=== PATIENT | female | born 1960 | race Caucasian/White ===

== ENCOUNTER → 2017-12-10 | Outpatient (CLI) | payer OTHER, BC ==
--- NOTE | 2017-12-10 12:56 | DIAGNOSTIC IMAGING REPORT ---
CHEST 2 VIEWS ROUTINE CLINICAL HISTORY: Preoperative chest COMPARISON STUDY: No previous studies for comparison. FINDINGS: The cardiac and mediastinal contours are normal. There is no evidence of focal pulmonary consolidation. There is no evidence of failure. No pleural effusions are visualized.[ IMPRESSION: No active disease in the chest. Electronically signed by: Evens Mejia M.D. 12/10/2017 12:54 PM Dictated Date/Time: 12/10/2017 12:54 PM
[2017-12-10 13:26] LABS: BASO % 0.5 %; BASO ABS # 0.03 K/uL (0-0.2); EOS % 2.1 %; EOS ABS # 0.13 K/uL (0-0.5); HEMATOCRIT 39.6 % (37-47); HEMOGLOBIN 12.6 g/dL (12.0-16.0); IG# 0.01 K/uL (0.00-0.02); LYMPH % 26.2 %; LYMPH ABS # 1.59 K/uL (1.2-3.4); MEAN CELL VOLUME 79.4 fL (80-100); MEAN CORPUSCULAR HEMOGLOBIN 25.3 pg (25-34); MEAN CORPUSCULAR HGB CONC 31.8 g/dl (32-36); MEAN PLATELET VOLUME 9.6 fL (7.4-10.4); MONO % 7.2 %; MONO ABS # 0.44 K/uL (0.11-0.59); NEUT % 63.8 %; NEUT ABS # 3.87 K/uL (1.4-6.5); PLATELET COUNT 220 K/uL (130-400); RED CELL DISTRIBUTION WIDTH SD 40.1 fL (36.4-46.3); WHITE BLOOD COUNT 6.07 K/uL (4.8-10.8)
== END | disposition home or self-care (01) ==
LOC: C.RAD 12:02
PROVIDERS: ATTEND Orthopaedic Surgery
DX: Z01.818 Encounter for other preprocedural examination (principal)

== ENCOUNTER → 2017-12-13 | Outpatient (CLI) | payer OTHER ==
[~2017-12-13] MED LIST: HYDR-5688 PO; LEVO25TA5 PO; MONT1TAB3 PO; VNTHFA/IN INH
== END | disposition home or self-care (01) ==
LOC: C.LABSPEC 15:18
PROVIDERS: ATTEND Orthopaedic Surgery
DX: Z01.818 Encounter for other preprocedural examination (principal)

== ENCOUNTER → 2017-12-26 | Outpatient (CLI) | payer OTHER, BC | END | disposition home or self-care (01) | LOC: C.CPL 10:55 | PROVIDERS: ATTEND Anesthesiology | DX: Z01.810 Encounter for preprocedural cardiovascular examination (principal) ==

== ENCOUNTER → 2018-01-04 | Day surgery (SDC) | payer OTHER, BC ==
--- NOTE | 2017-12-10 14:54 | HISTORY & PHYSICAL EXAMINATION ---
DATE OF SURGERY: 01/04/18 SUBJECTIVE/CHIEF COMPLAINT: Right shoulder pain. HISTORY OF PRESENT ILLNESS: The patient is a 57-year-old female who presented to the office 6 months status post right shoulder rotator cuff repair, subacromial decompression, distal clavicle excision. She started noticing some right shoulder pain and inability to lift her shoulder and perform her activities of daily living. She has tried a subacromial injection as well as physical therapy with minimal relief. She had an MRI that was questionable for a true retear of her rotator cuff versus a 10-hole through one of the sutures. She would like to proceed with a right shoulder revision rotator cuff repair. PAST MEDICAL HISTORY: Significant for asthma and hypothyroidism. PAST SURGICAL HISTORY: Two C-sections, bilateral knee surgery, right carpal tunnel release, and right shoulder rotator cuff repair. SOCIAL HISTORY: She denies alcohol use, denies smoking or tobacco use. She denies IV or illegal drug use. She lives in a 2-story house. 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 FAMILY HISTORY: Noncontributory. ALLERGIES: SULFUR OF WHICH SHE DEVELOPS A RASH AND STEROIDS OF WHICH SHE DEVELOPS THROAT SWELLING. MEDICATIONS: She takes Singulair, levothyroxine, hydrocodone, and albuterol. REVIEW OF SYSTEMS: She denies headaches, fevers, chills, double vision, blurry vision, sore throat, cough, chest pain, nausea, vomiting, diarrhea, constipation, numbness, tingling, tired, urinary difficulties, thoughts to harm herself or harm others or depression. She is positive for joint pain and joint stiffness of the right shoulder. OBJECTIVE: GENERAL APPEARANCE: The patient is a 57-year-old female who is sitting in no acute distress. She is well dressed, well nourished. She is awake, alert, and oriented x3. VITAL SIGNS: She is 5 feet 2 inches tall, 165 pounds, blood pressure is 130/78. HEENT: Normocephalic, atraumatic. Extraocular movements are intact. Mucosa was moist. No septal deviation. NECK: Supple, no lymphadenopathy, no JVD, no thyromegaly. HEART: Regular rate and rhythm with no murmurs or gallops. LUNGS: Clear to auscultation. No wheezing or rhonchi. ABDOMEN: Soft, nontender, nondistended. Normal bowel sounds, no hepatosplenomegaly. EXTREMITIES: Paying particular attention to the right upper extremity, she is able to actively flex to 90 degrees, abduct to 90 degrees and externally rotate to 30 degrees. She has decreased strength in all planes of motion. NEUROLOGIC: Cranial nerves II-XII were intact. Pulses were compared bilaterally and were equal. IMPRESSION: Right shoulder rotator cuff tear. PLAN: The patient is scheduled for a right revision rotator cuff repair. She has failed injections and physical therapy and she would like to proceed to schedule surgery. Risks and benefits, and alternatives to surgery were discussed including but not limited to infection, DVT, pain, stiffness, need for revision surgeries, failure to relieve her symptoms, retear, damage to blood vessels, damage to nerves, and risks of anesthesia and were all discussed with the patient. The patient understands these risks and wishes to proceed. All questions were answered to her satisfaction.
[~2018-01-04] VITALS: Ht 157.5 cm; Wt 75.0 kg
[~2018-01-04] MED LIST changes: +ACETAMINOPHEN 325 MG TAB PO PRN; +ALBUTEROL HFA INHALER 8.5 GM INH ONE; +ATROPINE SULFATE 0.1 MG/ML 5ML SYR IV PRN; +BUPIVACAINE 0.5 % 5 MG/1 ML MPF 30ML VIAL ONE; +CEFAZOLIN SOD 2000MG/15 ML IV PUSH ONE; +DEXAMETHASONE SOD INJ 4 MG/ML VIAL ONE; +EpHEDrine SULFATE INJ 50 MG/ML AMP IV PRN; +EpINEphrine HCL INJ 1 MG/ML 1ML SYRINGE ONE; +FENTANYL CITRATE INJ 50 MCG/1 ML 2 ML VIAL IV PRN; +FENTANYL CITRATE INJ 50 MCG/1 ML 2 ML VIAL ONE; +GLYCOPYRROLATE INJ 0.2 MG/ML VIAL ONE; +HYDROmorphone INJ 0.5 MG/0.5 ML SYR IV PRN; +KETOROLAC TROMETHAMINE 30 MG/ML VIAL IV. ONE; +KETOROLAC TROMETHAMINE 30 MG/ML VIAL ONE; +LABETALOL HCL IV 5 MG/ML 20ML IV PRN; +LACTATED RINGER'S 1000ML 1,000 ML IV SCH; +LIDOCAINE HCL 2% 2 ML VIAL (20MG/ML) ONE; +LIDOCAINE/EPINEPHRINE 1% 20 ML VIAL ONE; +MEPERIDINE HCL 25 MG/ML CARP IV PRN; +MIDAZOLAM HCL 1 MG/ML 2ML VIAL ONE; +MoRPHine SULFATE 2 MG/ML CARP IV PRN; +NEOSTIGMINE METHYLSULFATE 5 MG/5 ML SYR ONE; +NURSING VERBAL MED ORDER ONE; +ONDANSETRON INJ 2 MG/ML 2 ML VIAL IV PRN; +ONDANSETRON INJ 2 MG/ML 2 ML VIAL ONE; +OXYC-57 PO; +OXYCODONE HCL IR 5 MG TAB (IMMEDIATE RELEASE) PO PRN; +PROPOFOL IV EMULSION 10 MG/ML 20 ML VIAL ONE; +ROCURONIUM BROMIDE 10 MG/ML 5 ML VIAL ONE; +ROPIVACAINE 0.5% 5 MG/ML 30 ML VIAL ONE
--- NOTE | 2018-01-04 11:07 | History & Physical Bridge Note ---
H&P Re-Evaluation Bridge Note: I have examined the patient, reviewed the History & Physical and in the interval since the performance of the History & Physical I have noted the following changes of clinical significance: No changes noted
[2018-01-04 11:17] VITALS: BP 119/66; PULSE 62; TEMP 36.5; O2SAT 98; Ht 157.5 cm; Wt 75.0 kg
[2018-01-04 11:38] LABS: CALCIUM 8.3 mg/dl (8.5-10.1); CREATININE 0.71 mg/dl (0.60-1.20); POTASSIUM 3.9 mmol/L (3.5-5.1)
--- NOTE | 2018-01-04 14:00 | [facility] Operative Report ---
Operative Report Operative Date January 04, 2018. Pre-Operative Diagnosis Right Shoulder Rotator Cuff re-tear Post-Operative Diagnosis Same plus adhesions Procedure(s) Performed Right Shoulder: Arthroscopic Revision Rotator Cuff Repair with Lysis of Adhesions Surgeon Dr. Brown Mannequin Refinisher Surgeon(s) GERARDO Lin Estimated Blood Loss 1ML Findings As above Specimens none per surgeon Drains None Anesthesia Type General Regional Complication(s) none Disposition Recovery Room / PACU Indications The patient is a 57-year-old female. The undergone arthroscopic rotator cuff repair. She continued to have pain in the shoulder. Repeat imaging concerning but not completely definitive for rotator cuff re-tear. She had continued pain despite cortisone injection and continued physical therapy revision arthroscopy and likely revision rotator cuff repair Description of Procedure The MRI demonstrated a full-thickness rotator cuff tear. We discussed various treatment measures. The patient wished to proceed with arthroscopic repair. Risks, benefits and alternatives to surgery including, but not limited to, infection DVT, pain, stiffness, need for revision surgery, failure to relieve all symptoms, damage to blood vessels, damage to nerves, risk of anesthesia were discussed with the patient and they wished to proceed. The patient was identified. Laterality was confirmed and marked. The patient received a preoperative antibiotic as well as an interscalene block. They were transferred to the operating room and placed in the supine position and induced into general endotracheal anesthesia per the anesthesia staff. The patient was then safely transferred to the lateral decubitus position, secured by a beanbag. An axillary roll was placed. All pressure points were well-padded. The limb was placed in 10 pounds of lateral traction and then prepped and draped in the usual standard manner with ChloraPrep. The portal sites were anesthetized with 2% lidocaine with epinephrine. I made a standard posterior viewing portal made through a stab incision and then bluntly entered the glenohumeral joint. Then under spinal needle localization, I establish an anterior superolateral portal. The patient had evidence of their previous rotator cuff repair. The vast majority of the medial portion of the rotator cuff insertion was torn back off of bone. Number the sutures were performed and visible through the articular side. There is small portion that was healed on the lateral aspect of the footprint but the majority of the footprint was bare. The suture anchors themselves appeared to be intact. The cartilage of the humeral head and glenoid . The long head of the biceps absent. The subscapularis was normal. I then removed the instrumentation from the joint and entered the subacromial space and established a lateral portal. There was a full-thickness rotator cuff re-tear again there is a small amount of tissue on the lateral aspect of foot pronation that measured about 2 cm in diameter. Intact but is otherwise re -torn. The previous suture material was debrided out with a shaver as well as grasper. I debrided the footprint with a shaver to establish a good bleeding response. Through a stab incision I placed a 5.5 mm HEALICOIL suture anchor. I passed the ultra braid sutures in a horizontal mattress with a fast passive scorpion. I then passed the ultra tape with a shuttling suture. I repeated this process for a posterior medial anchor. I tied the ULTRABRAID sutures with sliding Monon knots reinforced for 3 half hitches on alternating posts. I then took 1 ULTRABRAID suture from each anchor I placed them in a 5.5 mm Multifix S suture anchor. I placed one anterolaterally. I then repeated this process another suture anchor posterolaterally, completing my double row construct. Portal sites were closed with nylon. A sterile dressing was applied and a sling placed. All needle and sponge counts were correct at the end of the procedure. The patient was transferred to the PACU in stable condition without apparent complication. The PA-C was necessary for assistance with procedure for assistance in positioning, prepping, draping, retraction and closure. I attest to the content of the Intraoperative Record and any orders documented therein. Any exceptions are noted below.
--- NOTE | 2018-01-04 14:27 | Discharge Instructions ---
Discharge Instructions Date of Service January 04, 2018. Visit Reason for Visit: Right Shoulder Rotator Cuff Tear Discharge Discharge Diagnosis / Problem: Right Shoulder Rotator Cuff Tear Discharge Goals Goal(s): Decrease discomfort, Improve function Activity Recommendations Activity Limitations: per Instructions/Follow-up section Anesthesia . Post Anesthesia Instructions: If you have had General Anesthesia or IV Sedation: * Do not drive today. * Resume driving when surgeon permits. * Do not make important decisions or sign legal documents today. * Call surgeon for: 1. Temperature elevations greater than 101 degrees F. 2. Uncontrollable pain. 3. Excessive bleeding. 4. Persistent nausea and vomiting. 5. Medication intolerance (nausea, vomiting or rash). * For nausea and vomiting use only clear liquids such as: tea, soda, bouillon until nausea subsides, then gradually increase diet as tolerated. * If you have any concerns or questions, call your surgeon's office. If physician is unavailable and it is an emergency, call 911 or go to the nearest emergency room. . Instructions / Follow-Up Instructions / Follow-Up U DISCHARGE INSTRUCTIONS: ROTATOR CUFF REPAIR SELF CARE INSTRUCTIONS A. You are permitted to loosen your sling/immobilizer to move your elbow, wrist , and hand to prevent stiffness. You should use your well arm (good arm) to assist the operated extremity when trying to raise the arm away from the body, hygiene purposes. Do NOT actively try to use/engage your shoulder muscles in operative arm at this time. You should NOT do overhead activity, lifting, or attempt to reach behind your back. B. You will not start Physical Therapy for 6 weeks. You will be provided a prescription for therapy with specific restrictions, if needed, at time of discharge. C. At 48 hours post-operatively, you may change your dressing. (Leave white steri-strips intact if present). Use band-aids and change daily. You are allowed to shower at this time and get the incision area wet, but DO NOT soak or submerge incision area in water. (No baths, swimming pools, hot tubs) D. Do NOT apply soap or any ointment/lotions directly over incision. E. You may use ice as needed to operative shoulder SPECIAL CARE INSTRUCTIONS: VERY IMPORTANT TO READ AND REVIEW A. There are a few signs you need to watch for after you are home. Call [facility] [place] at [phone] if you experience any of the following: a. Increased severe shoulder pain. Some pain is expected especially when you exercise b. Increased swelling in your shoulder or arm; pain or swelling in either upper extremity. (Note: swelling and stiffness is normal and expected for several weeks post op, depending on type of shoulder surgery you had). c. Any fluid or drainage from the incision; redness of the incision. d. Shortness of breath or chest pain. B. Please call [facility] at [phone] if you have any questions or concerns about your operation or recovery. C. Call your physician if: a. Temperature is greater than 101 degrees (F). b. Pain is not relieved by prescribed pain medications. c. Increase drainage or redness from incision. d. Unanswered questions or concerns. D. Pain Medication: a. You will be prescribed pain medication upon discharge that should last till your first post-operative appointment. b. If you experience nausea and/or skin rash, discontinue this medication and contact our office for an alternative medication. c. Caution- narcotic pain medication can cause constipation. FOLLOW UP VISIT: Please call [facility] at [phone] to schedule a follow up appointment with Dr Brown in 10-14 days from your surgery date. Diet Recommendations Recommended Home Diet: resume previous diet Procedures Procedures Performed: Right Shoulder: Arthroscopic Revision Rotator Cuff Repair with Lysis of Adhesions Pending Studies Studies pending at discharge: no Medical Emergencies . Who to Call and When: Medical Emergencies: If at any time you feel your situation is an emergency, please call 911 immediately. . Non-Emergent Contact Non-Emergency issues call your: Surgeon Call Non-Emergent contact if: temperature is above 101.5, your pain is not controlled, your pain is worsening, wound has increased drainage, wound has increased redness . . "Provider Documentation" section prepared by Ravindra Harvey. . [place] Drug Monitoring Program Search Results: patient reviewed within database, see additional documentation Drug Monitoring Findings: Pt receiving Hydrocodone rx monthly from Dr Angélica Shabazz MD in [place], [place]. Last rx filled 12/13/17. Pt will need to return to Dr Shabazz for continued pain meds after initial post operative period is over.
--- NOTE | 2018-01-04 14:54 | Anesthesiology Progress Note ---
Anesthesia Post Op Note Date & Time January 04, 2018 at 14:54 Vital Signs Pain Intensity: 0 Vital Signs Past 12 Hours Date Time Temp Pulse Resp B/P (MAP) Pulse Ox O2 Delivery O2 Flow Rate FiO2 01/04/18 14:42 36.8 49 01/04/18 14:41 109/57 01/04/18 14:40 45 21 01/04/18 14:40 45 21 93 01/04/18 14:36 115/61 01/04/18 14:35 48 16 01/04/18 14:35 48 16 98 01/04/18 14:30 45 15 01/04/18 14:30 45 15 121/65 98 01/04/18 14:26 115/64 01/04/18 14:25 44 17 97 01/04/18 14:25 43 17 01/04/18 14:21 124/65 01/04/18 14:20 46 17 01/04/18 14:20 46 17 01/04/18 14:10 36.5 56 16 132/66 97 Oxymask 8 01/04/18 11:17 36.5 62 18 119/66 (83) 98 Room Air Notes Mental Status: alert / awake / arousable, participated in evaluation Pt Amnestic to Procedure: Yes Nausea / Vomiting: adequately controlled Pain: adequately controlled Airway Patency, RR, SpO2: stable & adequate BP & HR: stable & adequate Hydration State: stable & adequate Anesthetic Complications: no major complications apparent
[2018-01-04 15:00] VITALS: BP 102/52; PULSE 43; TEMP 36.4; O2SAT 91
[2018-01-04 15:10] VITALS: BP 110/62; PULSE 45; TEMP 36.5; O2SAT 95
[2018-01-04 15:30] VITALS: BP 109/52; PULSE 47; TEMP 36.7; O2SAT 97
[2018-01-04 16:00] VITALS: BP 107/59; PULSE 50; TEMP 36.7; O2SAT 97
== END | disposition home or self-care (01) ==
LOC: C.ACU 10:42
PROVIDERS: ATTEND Orthopaedic Surgery
DX: M75.101 Unspecified rotator cuff tear or rupture of right shoulder, not specified as traumatic (principal); J45.909 Unspecified asthma, uncomplicated; E03.9 Hypothyroidism, unspecified; M19.90 Unspecified osteoarthritis, unspecified site; E66.9 Obesity, unspecified; Z88.2 Allergy status to sulfonamides; Z88.8 Allergy status to other drugs, medicaments and biological substances

== ENCOUNTER 2018-09-20 06:29 | Inpatient (IN) ==
--- NOTE | 2018-09-05 12:06 | Anesthesiology Consultation ---
Date of Service September 05, 2018 Assessment & Plan (1) Encounter for pre-operative examination: Chart Review Chart Review: Acceptable Risk for Surgery and Patient seen in Pre Admission Testing Teaching & Discussion Instructed NPO after midnight before surgery, except medications with 15 cc of water. Medication instructions provided according to the PAT guidelines. History Surgery Operation Date: 09/20/18 09:20 Proposed Procedures p Right Reverse Total Shoulder Arthroplasty - Christiano Brown MD Height/Weight Height: 5 ft 2 in Weight: 77.4 kg Allergies Allergy/AdvReac Type Severity Reaction Status Date / Time Sulfa (Sulfonamide Allergy Unknown TURNS RED Verified 08/30/18 09:09 Antibiotics) ALL OVER STEROIDS Allergy Severe ASTHMA Uncoded 08/30/18 09:09 ATTACK, RAW THROAT, THROAT SWELLING Medications Home Medications Medication Instructions Recorded Confirmed Last Taken albuterol sulfate 2 inh INHALATION Q6H PRN 08/30/18 08/30/18 Unknown hydrocodone-acetaminophen 1 tab PO Q6H PRN 08/30/18 08/30/18 Unknown levothyroxine 25 mcg PO QAM 08/30/18 08/30/18 Unknown montelukast [Singulair] 10 mg PO QAM 08/30/18 08/30/18 Unknown naproxen sodium 550 mg PO BID PRN 08/30/18 08/30/18 Unknown oxymetazoline [Nasal [place] Sinus] 2 spray INTRANASAL Q12H PRN 08/30/18 08/30/18 Unknown Past Medical History Medical History Asthma USES PRN INH 2XWK. Hypothyroidism Osteoarthritis Past Family History Family History Grandmother (Maternal) Family hx of colon cancer Past Surgical History Surgical History History of arthroscopy BL KNEE History of bilateral tubal ligation History of carpal tunnel release RT History of section History of colonoscopy History of shoulder surgery History of tooth extraction Past Anesthesia History No Hx of Anesthesia Complications and No Family Hx of Anesthesia Complications MAC 4, ETT 7.0 for 12/2017 RCR surgery at [facility], no issues per record. History of PONV No Motion Sickness Screening History of Motion Sickness: No Social History Smoking Status: Former smoker Do You Dip or Chew Tobacco: No Smoking End Date: QUIT AT AGE 22 Hx Alcohol Use: Yes Alcohol type: beer and wine alcohol intake frequency: holidays/special occasions only Hx Substance Use: No substance use type: does not use Exercise / Class Metabolic Activity II 4-5 Yardwork/Stairs/Walk up hill (no CP or SOB with stairs) Review of Systems Pt denies any recent chest pain, shortness of breath, palpitations, cough, fever or URI. Physical Exam Vital Signs BP: 108/73 P: 62bpm SPO2: 98% RA T: 97.9 F R: 16 ENMT Mouth: + poor dentition and + chipped teeth (several broken/chipped); no dental restorations and no loose teeth Thyromental Distance: > or= 3.5 Finger Breadths (3.5) Mallampati Class: II Neck normal visual inspection; neck extension not limited Respiratory normal respiratory effort Auscultation: lungs clear to auscultation bilaterally Cardiovascular Rate/Rhythm: regular rate and regular rhythm Heart Sounds: no murmur Vessels: no carotid bruit Testing Electrocardiogram Date: 12/26/17 Findings: + NSR @ (65) Chest X-Ray Date: 12/10/17 Findings: + NAD Laboratory Results 09/05/18 12:25 09/05/18 12:25 Blood Type B Positive 09/05/18 12:25 Antibody Screen NEGATIVE 09/05/18 12:25 PT 10.1 Seconds (9.0-12.0) 09/05/18 12:25 INR 1.0 (0.9-1.1) 09/05/18 12:25 APTT 25.2 Seconds (21.0-31.0) 09/05/18 12:25 Hemoglobin A1c 6.0 % (4.5-5.6) H 09/05/18 12:25 Urine Color Yellow 09/05/18 Unknown Urine Appearance Clear (Clear) 09/05/18 Unknown Urine pH 5.0 (4.5-7.5) 09/05/18 Unknown Ur Specific [place] 1.017 (1.000-1.030) 09/05/18 Unknown Urine Protein Negative (Negative) 09/05/18 Unknown Urine Glucose (UA) Negative (Negative) 09/05/18 Unknown Urine Ketones Negative (Negative) 09/05/18 Unknown Urine Nitrite Negative (Negative) 09/05/18 Unknown Ur Leukocyte Esterase Trace (Negative) H 09/05/18 Unknown Urine WBC (Auto) 1-5 /hpf (0-5) 09/05/18 Unknown Urine RBC (Auto) 0-4 /hpf (0-4) 09/05/18 Unknown U Hyaline Cast (Auto) 0 /lpf (0-5) 09/05/18 Unknown U Epithel Cells (Auto) 10-20 /lpf (0-5) H 09/05/18 Unknown Urine Bacteria (Auto) Negative (Negative) 09/05/18 Unknown
--- NOTE | 2018-09-05 12:16 | PAT Medication Instructions ---
Medication Instructions Date of Service September 05, 2018 Home Medications albuterol sulfate 2 inh INHALATION Q6H PRN hydrocodone-acetaminophen 1 tab PO Q6H PRN levothyroxine 25 mcg PO QAM montelukast [Singulair] 10 mg PO QAM naproxen sodium 550 mg PO BID PRN oxymetazoline [Nasal [place] Sinus] 2 spray INTRANASAL Q12H PRN ASK your surgeon for instructions naproxen sodium 550 mg PO BID PRN DO NOT take the morning of surgery montelukast [Singulair] 10 mg PO QAM Take morning of surgery With a small sip of water, OTHERWISE NOTHING TO EAT OR DRINK AFTER MIDNIGHT: albuterol sulfate 2 inh INHALATION Q6H PRN (if needed, and bring with you to the hospital) hydrocodone-acetaminophen 1 tab PO Q6H PRN (if needed, may be taken up to four hours before surgery) levothyroxine 25 mcg PO QAM oxymetazoline [Nasal [place] Sinus] 2 spray INTRANASAL Q12H PRN (if needed) Take evening before surgery albuterol sulfate 2 inh INHALATION Q6H PRN (if needed) hydrocodone-acetaminophen 1 tab PO Q6H PRN (if needed) oxymetazoline [Nasal [place] Sinus] 2 spray INTRANASAL Q12H PRN (if needed) Other Notes If you have any questions please call us at [phone] or [phone] or [phone] or [phone]
[2018-09-05 13:10] LABS: Partial Thromboplastin Time 25.2 Seconds (21.0-31.0); Prothrombin Time 10.1 Seconds (9.0-12.0)
[2018-09-05 13:10] LABS: Appearance Urine Clear (Clear); Bacteria Urine Automated Negative (Negative); Bilirubin Urine Negative (Negative); Cast Urine Automated 0 /lpf (0-5); Color Urine Yellow; Glucose Urine UA Negative (Negative); Ketones Urine Negative (Negative); Leukocyte Esterase Urine Trace (Negative); Nitrite Urine Negative (Negative); Protein Urine Negative (Negative); Specific Gravity Urine 1.017 (1.000-1.030); Urobilinogen Urine Negative (Negative)
[2018-09-05 13:14] LABS: Basophils # (auto) 0.02 K/uL (0-0.2); Basophils % (auto) 0.3 %; Eosinophils # (auto) 0.21 K/uL (0-0.5); Eosinophils % (auto) 3.4 %; Hematocrit (blood only) 40.9 % (37-47); Hemoglobin 12.9 g/dL (12.0-16.0); Immature Granulocytes # (auto) 0.02 K/uL (0.00-0.02); Immature Granulocytes % (auto) 0.3 %; Lymphocytes # (auto) 1.87 K/uL (1.2-3.4); Lymphocytes % (auto) 30.6 %; Mean Corpuscular Hgb Conc 31.5 g/dL (32-36); Mean Platelet Volume 10.1 fL (7.4-10.4); Monocytes # (auto) 0.41 K/uL (0.11-0.59); Monocytes % (auto) 6.7 %; Neutrophils # (auto) 3.59 K/uL (1.4-6.5); Neutrophils % (auto) 58.7 %; Platelet Count 210 K/uL (130-400); RDW Coefficient of Variation 14.1 % (11.5-14.5); RDW Standard Deviation 41.2 fL (36.4-46.3); Red Blood Count 5.05 M/uL (4.2-5.4); White Blood Count 6.12 K/uL (4.8-10.8)
[2018-09-05 13:41] LABS: Albumin Level 3.6 gm/dl (3.4-5.0); BUN Creatinine Ratio 17.8 (10-20); Calcium 8.7 mg/dl (8.5-10.1); Creatinine Clr Calc Pharmacy 83.2 ml/min; Est GFR (African American) 108.8; Est GFR (Non-African American) 93.9
[2018-09-05 13:49] LABS: Estimated Average Glucose 126 mg/dl
--- NOTE | 2018-09-11 11:40 | History & Physical Report ---
Date of Service September 11, 2018 Assessment & Plan (1) Complete tear of right rotator cuff: Patient has a large irreparable rotator cuff re-tear. Treatment options were discussed with the patient including surgical intervention of reverse total shoulder arthroplasty. Risks, benefits and alternatives to surgery including but not limited to infection, DVT, pain, stiffness, need for revision surgery, damage to blood vessels, damage to nerves, PE, , were discussed with the patient and they wish to proceed. Plan will be for right reverse total shoulder arthroplasty. All questions were answered. Surgery is scheduled for . Patient plans on discharge home with either home health PT or outpatient PT. She will follow up in the office post operatively. History of Present Illness Chief Complaint: Right Shoulder pain Primary Care Provider: Andrea Shabazz Patient is a 58 year old female with complaints of ongoing right shoulder pain and dysfunction. She has undergone previous shoulder arthroscopy with rotator cuff repair x 2, which have failed. She has a large irreparable rotator cuff tear. She has failed conservative measures including physical therapy, cortisone injecitons, and antiinflammatory medications. She would like to proceed with reverse total shoulder arthroplasty. Patient denies headaches, sweats, fevers, chills, double vision, blurred vision, cough, sore throat, dysphagia, chest pain, sob, wheezing, n/v/d/c, numbness, tingling, fatigue, urinary symptoms, mood disorders. ROS positive for right shulder pain and stiffness. Allergies Allergy/AdvReac Type Severity Reaction Status Date / Time Sulfa (Sulfonamide Allergy Unknown TURNS RED Verified 08/30/18 09:09 Antibiotics) ALL OVER STEROIDS Allergy Severe ASTHMA Uncoded 08/30/18 09:09 ATTACK, RAW THROAT, THROAT SWELLING Home Medications Home Medications Medication Instructions Recorded Confirmed Type albuterol sulfate 2 inh INHALATION Q6H PRN 08/30/18 08/30/18 History hydrocodone-acetaminophen 1 tab PO Q6H PRN 08/30/18 08/30/18 History levothyroxine 25 mcg PO QAM 08/30/18 08/30/18 History montelukast [Singulair] 10 mg PO QAM 08/30/18 08/30/18 History naproxen sodium 550 mg PO BID PRN 08/30/18 08/30/18 History oxymetazoline [Nasal Screven Sinus] 2 spray INTRANASAL Q12H PRN 08/30/18 08/30/18 History Past Med/Surg History Medical History Asthma USES PRN INH 2XWK. Hypothyroidism Osteoarthritis Surgical History History of arthroscopy BL KNEE History of bilateral tubal ligation History of carpal tunnel release RT History of section History of colonoscopy History of shoulder surgery History of tooth extraction Family History Grandmother (Maternal) Family hx of colon cancer Social History Current Living Situation Comment: LIVES WITH MARY ANN Other Information That Helps Us Care for You: No Feels Safe at Home: Yes Safety Concerns: Feels Safe At This Time Smoking Status: Former smoker Do You Dip or Chew Tobacco: No Smoking End Date: QUIT AT AGE 22 Hx Alcohol Use: Yes Alcohol type: beer and wine Alcohol Intake Frequency: holidays/special occasions only Hx Substance Use: No Beliefs That Will Affect Care: None Preferred Language: Faroese Communication Ability: Effective 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 Pain and weakness with supraspinatus and infraspinatus testing. Skin: no rashes, warm and dry Neurologic: normal touch/pain/proprioception Psychiatric: A+Ox3, euthymic affect Results & Data Laboratory Results Lab Results 09/05/18 09/05/18 09/05/18 Range/Units 12:25 12:25 12:25 WBC 6.12 (4.8-10.8) K/uL RBC 5.05 (4.2-5.4) M/uL Hgb 12.9 (12.0-16.0) g/dL Hct 40.9 (37-47) % MCV 81.0 (80-100) fL MCH 25.5 (25-34) pg MCHC 31.5 L (32-36) g/dL RDW Std Deviation 41.2 (36.4-46.3) fL RDW Coeff of Karoline 14.1 (11.5-14.5) % Plt Count 210 (130-400) K/uL MPV 10.1 (7.4-10.4) fL Immature Gran % (Auto) 0.3 % Neut % (Auto) 58.7 % Lymph % (Auto) 30.6 % [place] % (Auto) 6.7 % Eos % (Auto) 3.4 % Baso % (Auto) 0.3 % Immature Gran # (Auto) 0.02 (0.00-0.02) K/uL Neut # (Auto) 3.59 (1.4-6.5) K/uL Lymph # (Auto) 1.87 (1.2-3.4) K/uL [place] # (Auto) 0.41 (0.11-0.59) K/uL Eos # (Auto) 0.21 (0-0.5) K/uL Baso # (Auto) 0.02 (0-0.2) K/uL PT 10.1 (9.0-12.0) Seconds INR 1.0 (0.9-1.1) APTT 25.2 (21.0-31.0) Seconds PTT Ratio 1.0 Sodium 137 (136-145) mmol/L Potassium 4.0 (3.5-5.1) mmol/L Chloride 105 (98-107) mmol/L Carbon Dioxide 26 (21-32) mmol/L Anion Gap 6.0 (3-11) BUN 13 (7-18) mg/dl Creatinine 0.71 (0.6-1.2) mg/dl Est Cr Clr Drug Dosing 83.2 ml/min Est GFR ( Amer) 108.8 Est GFR (Non-Af Amer) 93.9 BUN/Creatinine Ratio 17.8 (10-20) Glucose 89 (70-99) mg/dl Estimat Average Glucose mg/dl Hemoglobin A1c (4.5-5.6) % Calcium 8.7 (8.5-10.1) mg/dl Albumin 3.6 (3.4-5.0) gm/dl Urine Color Urine Appearance (Clear) Urine pH (4.5-7.5) Ur Specific [place] (1.000-1.030) Urine Protein (Negative) Urine Glucose (UA) (Negative) Urine Ketones (Negative) Urine Blood (Negative) Urine Nitrite (Negative) Urine Bilirubin (Negative) Urine Urobilinogen (Negative) Ur Leukocyte Esterase (Negative) Urine WBC (Auto) (0-5) /hpf Urine RBC (Auto) (0-4) /hpf U Hyaline Cast (Auto) (0-5) /lpf U Epithel Cells (Auto) (0-5) /lpf Urine Bacteria (Auto) (Negative) Blood Type Antibody Screen 09/05/18 09/05/18 09/05/18 Range/Units 12:25 12:25 Unknown WBC (4.8-10.8) K/uL RBC (4.2-5.4) M/uL Hgb (12.0-16.0) g/dL Hct (37-47) % MCV (80-100) fL MCH (25-34) pg MCHC (32-36) g/dL RDW Std Deviation (36.4-46.3) fL RDW Coeff of Karoline (11.5-14.5) % Plt Count (130-400) K/uL MPV (7.4-10.4) fL Immature Gran % (Auto) % Neut % (Auto) % Lymph % (Auto) % [place] % (Auto) % Eos % (Auto) % Baso % (Auto) % Immature Gran # (Auto) (0.00-0.02) K/uL Neut # (Auto) (1.4-6.5) K/uL Lymph # (Auto) (1.2-3.4) K/uL [place] # (Auto) (0.11-0.59) K/uL Eos # (Auto) (0-0.5) K/uL Baso # (Auto) (0-0.2) K/uL PT (9.0-12.0) Seconds INR (0.9-1.1) APTT (21.0-31.0) Seconds PTT Ratio Sodium (136-145) mmol/L Potassium (3.5-5.1) mmol/L Chloride (98-107) mmol/L Carbon Dioxide (21-32) mmol/L Anion Gap (3-11) BUN (7-18) mg/dl Creatinine (0.6-1.2) mg/dl Est Cr Clr Drug Dosing ml/min Est GFR ( Amer) Est GFR (Non-Af Amer) BUN/Creatinine Ratio (10-20) Glucose (70-99) mg/dl Estimat Average Glucose 126 mg/dl Hemoglobin A1c 6.0 H (4.5-5.6) % Calcium (8.5-10.1) mg/dl Albumin (3.4-5.0) gm/dl Urine Color Yellow Urine Appearance Clear (Clear) Urine pH 5.0 (4.5-7.5) Ur Specific [place] 1.017 (1.000-1.030) Urine Protein Negative (Negative) Urine Glucose (UA) Negative (Negative) Urine Ketones Negative (Negative) Urine Blood Negative (Negative) Urine Nitrite Negative (Negative) Urine Bilirubin Negative (Negative) Urine Urobilinogen Negative (Negative) Ur Leukocyte Esterase Trace H (Negative) Urine WBC (Auto) 1-5 (0-5) /hpf Urine RBC (Auto) 0-4 (0-4) /hpf U Hyaline Cast (Auto) 0 (0-5) /lpf U Epithel Cells (Auto) 10-20 H (0-5) /lpf Urine Bacteria (Auto) Negative (Negative) Blood Type B Positive Antibody Screen NEGATIVE Diagnostic Findings Right shoulder MR arthrogram: Large full thickness re-tear of supraspinatus extending to infraspinatus with retraction to level of the glenoid.
[~2018-09-20 06:29] MED LIST changes: -ACETAMINOPHEN 325 MG TAB PO PRN; +ACETAMINOPHEN 500 MG TAB PO SCH; -ALBUTEROL HFA INHALER 8.5 GM INH ONE; -ATROPINE SULFATE 0.1 MG/ML 5ML SYR IV PRN; -BUPIVACAINE 0.5 % 5 MG/1 ML MPF 30ML VIAL ONE; +CEFAZOLIN 1000MG 1,000 MG/7.5 ML SYR IV SCH; -CEFAZOLIN SOD 2000MG/15 ML IV PUSH ONE; -DEXAMETHASONE SOD INJ 4 MG/ML VIAL ONE; -EpHEDrine SULFATE INJ 50 MG/ML AMP IV PRN; -EpINEphrine HCL INJ 1 MG/ML 1ML SYRINGE ONE; +FAMOTIDINE 20 MG TAB PO SCH; -FENTANYL CITRATE INJ 50 MCG/1 ML 2 ML VIAL IV PRN; -FENTANYL CITRATE INJ 50 MCG/1 ML 2 ML VIAL ONE; +GABAPENTIN 300 MG x 2 PO SCH; -GLYCOPYRROLATE INJ 0.2 MG/ML VIAL ONE; -HYDR-5688 PO; -HYDROmorphone INJ 0.5 MG/0.5 ML SYR IV PRN; -KETOROLAC TROMETHAMINE 30 MG/ML VIAL IV. ONE; -KETOROLAC TROMETHAMINE 30 MG/ML VIAL ONE; -LABETALOL HCL IV 5 MG/ML 20ML IV PRN; -LACTATED RINGER'S 1000ML 1,000 ML IV SCH; -LEVO25TA5 PO; -LIDOCAINE HCL 2% 2 ML VIAL (20MG/ML) ONE; -LIDOCAINE/EPINEPHRINE 1% 20 ML VIAL ONE; +LR 15ML/HR IV SCH; -MEPERIDINE HCL 25 MG/ML CARP IV PRN; +METOCLOPRAMIDE HCL 10 MG TABLET PO SCH; -MIDAZOLAM HCL 1 MG/ML 2ML VIAL ONE; -MONT1TAB3 PO; -MoRPHine SULFATE 2 MG/ML CARP IV PRN; -NEOSTIGMINE METHYLSULFATE 5 MG/5 ML SYR ONE; -NURSING VERBAL MED ORDER ONE; -ONDANSETRON INJ 2 MG/ML 2 ML VIAL IV PRN; -ONDANSETRON INJ 2 MG/ML 2 ML VIAL ONE; -OXYC-57 PO; -OXYCODONE HCL IR 5 MG TAB (IMMEDIATE RELEASE) PO PRN; -PROPOFOL IV EMULSION 10 MG/ML 20 ML VIAL ONE; -ROCURONIUM BROMIDE 10 MG/ML 5 ML VIAL ONE; -ROPIVACAINE 0.5% 5 MG/ML 30 ML VIAL ONE; +ROPIVACAINE 0.5% HCL/PF 150 MG, BUPIVACAINE 0.5% MPF 30 ML, EPINEPHrine 30MG/30ML (OR U... INFIL SCH; -VNTHFA/IN INH; +dexAMETHasone 4 MG TAB PO SCH
--- NOTE | 2018-09-20 06:50 | History & Physical Bridge Note ---
Date of Service September 20, 2018 History & Physical Bridge Note I have examined the patient, reviewed the History & Physical and in the interval since the performance of the History & Physical I have noted the following changes of clinical significance: no changes noted
[2018-09-20] MEDS ORDERED: ROPIVACAINE 0.5% 5 MG/ML 30 ML VIAL ONE (07:05)
[2018-09-20] MEDS ORDERED: MIDAZOLAM HCL 1 MG/ML 2ML VIAL ONE (07:23)
[2018-09-20] MEDS ORDERED: fentaNYL citrate 100 MCG/2 ML VIAL ONE (07:23)
[2018-09-20] MEDS ORDERED: ePHEDrine sulfate 50 MG/ML AMP IV PRN (08:21)
[2018-09-20] MEDS ORDERED: ATROPINE SULFATE 0.1 MG/ML 10ML SYR IV PRN (08:21)
[2018-09-20] MEDS ORDERED: fentaNYL citrate 100 MCG/2 ML VIAL IV PRN (08:21)
[2018-09-20] MEDS ORDERED: ONDANSETRON INJ 2 MG/ML 2 ML VIAL IV PRN ×2 (08:21→11:54)
[2018-09-20] MEDS ORDERED: BACITRACIN INJ 50,000 UNIT VIAL ONE (09:16)
[2018-09-20] MEDS ORDERED: THROMBIN FOR SOLN 20000 UNIT KIT ONE (09:16)
[2018-09-20] MEDS ORDERED: VANCOMYCIN HCL 1000MG/20ML VIAL ONE (09:16)
[2018-09-20] MEDS ORDERED: POVIDONE-IODINE OP SOLN 30 ML BTL ONE (09:16)
[2018-09-20] MEDS ORDERED: PROPOFOL IV EMULSION 10 MG/ML 20 ML VIAL IV ONE (10:04)
[2018-09-20] MEDS ORDERED: LIDOCAINE HCL 2% 2 ML VIAL/AMP(20MG/ML) INFIL ONE (10:04)
[2018-09-20] MEDS ORDERED: ROCURONIUM BROMIDE 10 MG/ML 5 ML VIAL ONE (10:04)
[2018-09-20] MEDS ORDERED: ONDANSETRON INJ 2 MG/ML 2 ML VIAL ONE (10:04)
[2018-09-20] MEDS ORDERED: SUCCINYLCHOLINE CHLORIDE 20 MG/ML 10 ML VIAL ONE (10:04)
[2018-09-20] MEDS ORDERED: ePHEDrine sulfate 50 MG/ML SYR ONE (10:27)
--- NOTE | 2018-09-20 11:28 | Operative Report ---
Post Operative Report Pre & Post Diagnosis Operation Date: 09/20/18 09:00 Pre-Op Diagnosis: Right Shoulder rotator cuff arthropathy Post-Op Diagnosis: Right Shoulder rotator cuff arthropathy Procedure Operation Date: 09/20/18 09:00 Actual Procedures p Right Reverse Total Shoulder Arthroplasty(Right) - Christiano Brown MD Surgeon Christiano Brown MD Frame Polisher Augustus Mayfield PA-C Estimated Blood Loss 50 Findings Consistent with Post-Op Diagnosis Specimens Humeral head Drains 1 Hemovac Anesthesia Type General Regional Complications none Disposition Accompanied Patient To Recovery: No Disposition: Recovery Room Indications The patient is a 58-year-old female who sustained a rotator cuff tear. She had undergone arthroscopic repair. The time of her repair she had fairly poor tissue quality particular bone quality. She developed a re-tear of the rotator cuff. We again performed a revision rotator cuff repair she again had re- tearing of the rotator cuff. This states she has a irreparable rotator cuff tear with continued pain and disability. She is failed conservative measures including injection, anti-inflammatories, physical therapy and she wishes to proceed with a reverse total shoulder arthroplasty. Description of Procedure Risks, benefits and alternatives to surgery including, but not limited to, infection DVT, pain, stiffness, need for revision surgery, failure to relieve all symptoms, damage to blood vessels, damage to nerves, risk of anesthesia were discussed with the patient and they wished to proceed. The patient was identified. Laterality was confirmed and marked. The patient received a preoperative antibiotic as well as an interscalene block. They were transferred to the operating room and placed in the supine position and induced into general endotracheal anesthesia per the anesthesia staff. The patient was then safely transferred to a slight beachchair position. The patient was secured in the Tenet positioner. All pressure points were well padded. The shoulder was prepped and draped in the usual sterile manner with ChloraPrep. The arm was secured in the Spider valle. I made a longitudinal incision just lateral to the coracoid, sharply incising through the skin and utilizing Bovie electrocautery to achieve hemostasis. I identified the cephalic vein and mobilized it laterally with the deltoid. I mobilize the pectoralis and mobilize this medially releasing a small portion of the upper border of the pec tendon to improve visualization. I then identified and mobilized the conjoined tendon. I identified the long head of the biceps tendon. The long head of the biceps tendon had had previously been tenodesed. I then released the subscapularis. I pinned into place my humeral head version cutting guide and made my humeral head resection. I then sequentially reamed and sequentially broached. I then placed the trial humeral stem into the shoulder. I placed retractors around the glenoid and then excised the residual biceps tendon stump and glenoid labrum. I elevated the soft tissues and the inferior aspect of the glenoid to improve exposure and released tissues circumferentially. I then positioned and drilled for the central post for the glenoid plate. The glenoid plate was bone grafted with bone taken from the humeral head. I impacted the definitive glenoid plate into position and then placed a total of 4 compression screws that were then locked into position with locking caps. I then placed the glenosphere onto the plate and secured it with a locking screw. I then removed the trial humeral stem and placed the definitive humeral stem. I trialed off of the definitive stem. The definitive components used were [employer] Equinox: Preserve short humeral press-fit stem: 6 Standard glenoid plate Glenosphere: 38 Humeral tray:+ 0 Humeral polyethylene liner: + 0 I thoroughly irrigated the wound. Deep tissues were anesthetized with an orthomix solution. I then locked my definitive humeral tray into position with a torque limiting screw. I then impacted the definitive humeral polyethylene liner into position. I then reduced the shoulder. There was good range of motion and good stability after the reduction. The wound was again thoroughly irrigated and a Betadine soak was performed. A deep drain was placed. The deltopectoral interval was closed with interrupted #1 Ethibond suture. The subcutaneous tissue was closed with interrupted 2-0 Vicryl suture. The skin was closed with minerva. A sterile dressing was applied. A sling was placed. All needle and sponge counts were correct at the end of the procedure. The patient was transferred to the PACU in stable condition without apparent complication. The PA-C was necessary for assistance with procedure for assistance in positioning, prepping, draping, retraction and closure. I attest to the content of the Intraoperative Record and any orders documented therein. Any exceptions are noted below.
[2018-09-20] MEDS ORDERED: NALOXONE HCL 0.4 MG/1 ML VIAL/CARP IV PRN (11:54)
[2018-09-20] MEDS ORDERED: BISACODYL 10 MG SUPP PR PRN (11:54)
[2018-09-20] MEDS ORDERED: METOCLOPRAMIDE HCL INJ 5 MG/ML 2 ML VIAL IV PRN (11:54)
[2018-09-20] MEDS ORDERED: OXYMETAZOLINE 0.05% 30 ML BTL PRN (11:54)
[2018-09-20] MEDS ORDERED: MAGNESIUM HYDROXIDE SUSP 30 ML UDC PO PRN (11:54)
--- NOTE | 2018-09-20 12:27 | Anesthesiology Progress Note ---
Date of Service September 20, 2018 Anesthesia Post Procedure Vital Signs Vital Signs: Temp Pulse Pulse Resp BP Pulse Ox 09/20/18 12:20 64 16 132/71 98 09/20/18 12:10 66 16 142/75 H 100 09/20/18 12:00 97 H 16 139/69 100 09/20/18 11:54 97.0 F L 75 16 127/79 98 09/20/18 07:12 97.7 F 71 20 130/57 L 97 Pain Intensity Right Shoulder: Pain Intensity: 0 Notes Mental Status: alert / awake / arousable and participated in evaluation Patient Amnestic to Procedure: Yes Nausea / Vomiting: adequately controlled Pain: adequately controlled Airway Patency, RR, SpO2: stable & adequate BP & HR: stable & adequate Hydration State: stable & adequate Anesthetic Complications: no major complications apparent and Pt Satisfied with anesthetic care
--- NOTE | 2018-09-20 12:39 | XRay Report ---
XR shoulder RT min 2V routine CLINICAL HISTORY: Post shoulder surgery COMPARISON: None FINDINGS: Alignment of the reverse total right shoulder arthroplasty is anatomic. There is no peripr osthetic fracture or unexpected radiopaque foreign body. There are skin minerva. IMPRESSION: Expected findings following reverse total right shoulder arthroplasty. Electronically signed by: Marcelo Adams M.D. 09/20/2018 12:37 PM
[2018-09-20] MEDS ORDERED: NAPROXEN 250 MG TAB PO PRN (13:20)
[2018-09-20] MEDS ORDERED: ALBUTEROL HFA 8 GM INHALER INH PRN (13:30)
[2018-09-20] MEDS: ACETAMINOPHEN 500 MG TAB PO SCH ×2 (14:18→20:37)
[2018-09-20] MEDS: SODIUM CHLORIDE 0.9% 1000ML 1,000 ML IV SCH ×2 (16:37→20:37)
[2018-09-20] MEDS: CEFAZOLIN 1000MG 1,000 MG/7.5 ML SYR IV SCH (18:46)
[2018-09-20] MEDS: MONTELUKAST SODIUM 10 MG TABLET PO SCH (19:09)
[2018-09-20] MEDS: DOCUSATE SODIUM 100 MG CAP PO SCH (19:09)
[2018-09-20] MEDS: SENNA 8.6 MG TAB PO SCH (19:10)
[2018-09-20] MEDS: OXYCODONE HCL IR 5 MG TAB (IMMEDIATE RELEASE) PO PRN (23:23)
[2018-09-21] MEDS: MoRPHine SULFATE 2 MG/ML CARP IV PRN ×2 (01:46→07:51)
[2018-09-21] MEDS: CEFAZOLIN 1000MG 1,000 MG/7.5 ML SYR IV SCH (01:46)
[2018-09-21] MEDS ORDERED: Nursing to Pharmacy Communication ONE (02:01)
[2018-09-21] MEDS: LEVOTHYROXINE SODIUM 25 MCG TABLET PO SCH (05:23)
[2018-09-21] MEDS: ACETAMINOPHEN 500 MG TAB PO SCH ×3 (05:23→21:18)
[2018-09-21] MEDS: OXYCODONE HCL IR 5 MG TAB (IMMEDIATE RELEASE) PO PRN ×3 (05:26→21:16)
[2018-09-21 06:21] LABS: Basophils # (auto) 0.01 K/uL (0-0.2); Basophils % (auto) 0.1 %; Eosinophils # (auto) 0.12 K/uL (0-0.5); Eosinophils % (auto) 1.4 %; Hematocrit (blood only) 35.5 % (37-47); Hemoglobin 11.3 g/dL (12.0-16.0); Immature Granulocytes # (auto) 0.01 K/uL (0.00-0.02); Immature Granulocytes % (auto) 0.1 %; Lymphocytes # (auto) 1.25 K/uL (1.2-3.4); Lymphocytes % (auto) 14.1 %; Mean Corpuscular Hgb Conc 31.8 g/dL (32-36); Mean Corpuscular Volume 80.7 fL (80-100); Mean Platelet Volume 9.6 fL (7.4-10.4); Monocytes # (auto) 0.58 K/uL (0.11-0.59); Monocytes % (auto) 6.5 %; Neutrophils # (auto) 6.89 K/uL (1.4-6.5); Neutrophils % (auto) 77.8 %; Platelet Count 185 K/uL (130-400); RDW Coefficient of Variation 14.2 % (11.5-14.5); RDW Standard Deviation 42.4 fL (36.4-46.3); White Blood Count 8.86 K/uL (4.8-10.8)
[2018-09-21 06:54] LABS: Calcium 8.1 mg/dl (8.5-10.1); Creatinine Clr Calc Pharmacy 82.5 ml/min; Est GFR (African American) 108.8; Est GFR (Non-African American) 93.9; Potassium 3.6 mmol/L (3.5-5.1)
--- NOTE | 2018-09-21 07:50 | Orthopedic Progress Note ---
Date of Service September 21, 2018 Assessment & Plan (1) S/p reverse total shoulder arthroplasty: POD#1 right reverse TSA -pain management -PT/OT -DVT prophylaxis-SCDs -D/C planning-home with outpatient PT vs home health, possibly later today. Subjective POD#1 reverse TSA. Patient is having quite a bit of pain now that her block has worn off, is improving with pain medication. No other complaints at this time. Denies cp,sob,calf pain, dizziness. Physical Exam 2 Vital Signs (Past 24 Hours): Last Vital Signs Temp 36.7 C 09/21/18 07:26 Pulse 68 09/21/18 07:26 Resp 16 09/21/18 07:26 BP 96/58 L 09/21/18 07:26 Pulse Ox 93 09/21/18 07:26 Physical Exam: Dressing c/d/i, hemovac inplace. Fingers mobie, good electronic equipment maint tech strength. N/V status and sensation intact.
[2018-09-21] MEDS: MULTIVITAMIN TAB PO SCH (08:44)
[2018-09-21] MEDS: DOCUSATE SODIUM 100 MG CAP PO SCH ×2 (08:44→21:18)
--- NOTE | 2018-09-21 11:46 | Anesthesiology Progress Note ---
Date of Service September 21, 2018 Anesthesia Post Procedure Vital Signs Vital Signs: Temp Pulse Pulse Resp BP Pulse Ox 09/21/18 10:36 66 101/63 09/21/18 07:26 36.7 C 68 16 96/58 L 93 09/21/18 03:26 36.9 C 73 16 103/60 96 09/20/18 23:12 36.8 C 75 18 113/68 99 09/20/18 15:20 36.3 C L 66 18 104/59 L 98 09/20/18 14:47 36.3 C L 66 18 101/61 99 09/20/18 13:47 68 18 118/74 97 09/20/18 13:19 36.4 C L 64 18 109/65 99 09/20/18 12:45 36.4 C L 63 18 120/73 96 09/20/18 12:29 36.4 C L 65 16 125/64 96 09/20/18 12:20 64 16 132/71 98 09/20/18 12:10 66 16 142/75 H 100 09/20/18 12:00 97 H 16 139/69 100 09/20/18 11:54 36.1 C L 75 16 127/79 98 Pain Intensity Right Shoulder: Pain Intensity: 8 Notes Mental Status: alert / awake / arousable and participated in evaluation Patient Amnestic to Procedure: Yes Nausea / Vomiting: adequately controlled Pain: adequately controlled Airway Patency, RR, SpO2: stable & adequate BP & HR: stable & adequate Hydration State: stable & adequate Anesthetic Complications: no major complications apparent
[2018-09-21] MEDS: SENNA 8.6 MG TAB PO SCH (21:18)
[2018-09-21] MEDS: MONTELUKAST SODIUM 10 MG TABLET PO SCH (21:18)
[2018-09-22] MEDS: OXYCODONE HCL IR 5 MG TAB (IMMEDIATE RELEASE) PO PRN ×3 (05:11→13:35)
[2018-09-22] MEDS: LEVOTHYROXINE SODIUM 25 MCG TABLET PO SCH (05:11)
[2018-09-22] MEDS: ACETAMINOPHEN 500 MG TAB PO SCH ×2 (05:11→13:35)
--- NOTE | 2018-09-22 07:31 | Orthopedic Progress Note ---
Date of Service September 22, 2018 Assessment & Plan (1) S/p reverse total shoulder arthroplasty: POD#2 right reverse TSA -pain management -PT/OT -DVT prophylaxis-SCDs -D/C planning-home with outpatient PT possibly later today if PT goes well. Subjective POD#2 reverse TSA. Patient is having improvement of pain from yesterday, is improving with pain medication. No other complaints at this time. Denies cp,sob, calf pain, dizziness. Physical Exam 2 Vital Signs (Past 24 Hours): Last Vital Signs Temp 36.6 C 09/22/18 07:26 Pulse 58 L 09/22/18 07:26 Resp 18 09/22/18 07:26 BP 96/59 L 09/22/18 07:26 Pulse Ox 94 09/22/18 07:26 Physical Exam: Hemovac removed, dressing c/d/i. Fingers mobile. Sensation intact. N/V status intact
[2018-09-22] MEDS: MULTIVITAMIN TAB PO SCH (08:55)
[2018-09-22] MEDS: DOCUSATE SODIUM 100 MG CAP PO SCH (08:55)
--- NOTE | 2018-09-22 15:15 | Discharge Summary ---
Date of Service September 22, 2018 Admission HPI Per Admitting Provider Patient is a 58 year old female with complaints of ongoing right shoulder pain and dysfunction. She has undergone previous shoulder arthroscopy with rotator cuff repair x 2, which have failed. She has a large irreparable rotator cuff tear. She has failed conservative measures including physical therapy, cortisone injecitons, and antiinflammatory medications. She would like to proceed with reverse total shoulder arthroplasty. Patient denies headaches, sweats, fevers, chills, double vision, blurred vision, cough, sore throat, dysphagia, chest pain, sob, wheezing, n/v/d/c, numbness, tingling, fatigue, urinary symptoms, mood disorders. ROS positive for right shoulder pain and stiffness. Admission Exam Per Admitting Provider Vital Signs (Past 24 Hours): BP 122/72 Constitutional: well developed and well nourished; no acute distress Eyes: PERRL, conjunctivae normal, anicteric sclerae ENMT: external ear and nose normal, oropharynx normal Neck: trachea midline, no thyromegaly Respiratory: normal respiratory effort, lungs clear to auscultation Cardiovascular: RRR, no murmur, no edema Musculoskeletal: Right shoulder-foward flexion 0-90, abduction 0-70 degrees , ER to neutral actively and passively to 40 degrees. Pain and weakness with supraspinatus and infraspinatus testing. Skin: no rashes, warm and dry Neurologic: normal touch/pain/proprioception Psychiatric: A+Ox3, euthymic affect Principal Diagnosis Right shoulder massive rotator cuff tear Discharge Exam Constitutional well developed and well nourished; no acute distress Eyes PERRL, conjunctivae normal, anicteric sclerae ENMT external ear and nose normal, oropharynx normal Neck trachea midline, no thyromegaly Respiratory normal respiratory effort, lungs clear to auscultation Cardiovascular RRR, no murmur, no edema Skin no rashes, warm and dry Neurologic normal touch/pain/proprioception Psychiatric A+Ox3, euthymic affect Discharge Data Allergies Allergy/AdvReac Type Severity Reaction Status Date / Time Corticosteroids Allergy Severe "STEROIDS" Verified 09/20/18 06:48 (Glucocorticoids) -- ASTHMA ATTACK, RAW THROAT, THROAT SWELLING Sulfa (Sulfonamide Allergy Unknown TURNS RED Verified 09/20/18 06:48 Antibiotics) ALL OVER cholecalciferol (vitamin D3) AdvReac Mild Nausea Verified 09/20/18 06:47 [From Vitamin D3] Consultations 09/20/18 11:56 Consult Case Management - Discharge Planning Routine Procedures Performed Operation Date: 09/20/18 09:00 Actual Procedures p Right Reverse Total Shoulder Arthroplasty(Right) - Christiano Brown MD Ordered Studies 09/20/18 05:00 US - OR guided needle placemen Routine Hospital Course (1) S/p reverse total shoulder arthroplasty: Patient presented for same day admission following right reverse total shoulder arthroplasty on 09/20/18. She tolerated procedure well. Post-operatively , her activity was progressed and well tolerated. On POD#1 patient had some increased pain, as well as nausea. Hemoglobin dropped from 12.9 to 11.3. She felt improved on POD#2. Please refer to daily progress notes and PT notes for complete details. After exam on (), patient was felt to be stable for discharge home with (). Patient will f/u in the office in about 2 weeks for further evaluation including x-rays and incision check, sooner if having any issues or concerns. Lab Results 09/05/18 09/05/18 09/05/18 Range/Units 12:25 12:25 12:25 WBC 6.12 (4.8-10.8) K/uL RBC 5.05 (4.2-5.4) M/uL Hgb 12.9 (12.0-16.0) g/dL Hct 40.9 (37-47) % MCV 81.0 (80-100) fL MCH 25.5 (25-34) pg MCHC 31.5 L (32-36) g/dL RDW Std Deviation 41.2 (36.4-46.3) fL RDW Coeff of Karoline 14.1 (11.5-14.5) % Plt Count 210 (130-400) K/uL MPV 10.1 (7.4-10.4) fL Immature Gran % (Auto) 0.3 % Neut % (Auto) 58.7 % Lymph % (Auto) 30.6 % [place] % (Auto) 6.7 % Eos % (Auto) 3.4 % Baso % (Auto) 0.3 % Immature Gran # (Auto) 0.02 (0.00-0.02) K/uL Neut # (Auto) 3.59 (1.4-6.5) K/uL Lymph # (Auto) 1.87 (1.2-3.4) K/uL [place] # (Auto) 0.41 (0.11-0.59) K/uL Eos # (Auto) 0.21 (0-0.5) K/uL Baso # (Auto) 0.02 (0-0.2) K/uL PT 10.1 (9.0-12.0) Seconds INR 1.0 (0.9-1.1) APTT 25.2 (21.0-31.0) Seconds PTT Ratio 1.0 Sodium 137 (136-145) mmol/L Potassium 4.0 (3.5-5.1) mmol/L Chloride 105 (98-107) mmol/L Carbon Dioxide 26 (21-32) mmol/L Anion Gap 6.0 (3-11) BUN 13 (7-18) mg/dl Creatinine 0.71 (0.6-1.2) mg/dl Est Cr Clr Drug Dosing 83.2 ml/min Est GFR ( Amer) 108.8 Est GFR (Non-Af Amer) 93.9 BUN/Creatinine Ratio 17.8 (10-20) Glucose 89 (70-99) mg/dl Estimat Average Glucose mg/dl Hemoglobin A1c (4.5-5.6) % Calcium 8.7 (8.5-10.1) mg/dl Albumin 3.6 (3.4-5.0) gm/dl Urine Color Urine Appearance (Clear) Urine pH (4.5-7.5) Ur Specific [place] (1.000-1.030) Urine Protein (Negative) Urine Glucose (UA) (Negative) Urine Ketones (Negative) Urine Blood (Negative) Urine Nitrite (Negative) Urine Bilirubin (Negative) Urine Urobilinogen (Negative) Ur Leukocyte Esterase (Negative) Urine WBC (Auto) (0-5) /hpf Urine RBC (Auto) (0-4) /hpf U Hyaline Cast (Auto) (0-5) /lpf U Epithel Cells (Auto) (0-5) /lpf Urine Bacteria (Auto) (Negative) Blood Type Antibody Screen 09/05/18 09/05/18 09/05/18 Range/Units 12:25 12:25 Unknown WBC (4.8-10.8) K/uL RBC (4.2-5.4) M/uL Hgb (12.0-16.0) g/dL Hct (37-47) % MCV (80-100) fL MCH (25-34) pg MCHC (32-36) g/dL RDW Std Deviation (36.4-46.3) fL RDW Coeff of Karoline (11.5-14.5) % Plt Count (130-400) K/uL MPV (7.4-10.4) fL Immature Gran % (Auto) % Neut % (Auto) % Lymph % (Auto) % [place] % (Auto) % Eos % (Auto) % Baso % (Auto) % Immature Gran # (Auto) (0.00-0.02) K/uL Neut # (Auto) (1.4-6.5) K/uL Lymph # (Auto) (1.2-3.4) K/uL [place] # (Auto) (0.11-0.59) K/uL Eos # (Auto) (0-0.5) K/uL Baso # (Auto) (0-0.2) K/uL PT (9.0-12.0) Seconds INR (0.9-1.1) APTT (21.0-31.0) Seconds PTT Ratio Sodium (136-145) mmol/L Potassium (3.5-5.1) mmol/L Chloride (98-107) mmol/L Carbon Dioxide (21-32) mmol/L Anion Gap (3-11) BUN (7-18) mg/dl Creatinine (0.6-1.2) mg/dl Est Cr Clr Drug Dosing ml/min Est GFR ( Amer) Est GFR (Non-Af Amer) BUN/Creatinine Ratio (10-20) Glucose (70-99) mg/dl Estimat Average Glucose 126 mg/dl Hemoglobin A1c 6.0 H (4.5-5.6) % Calcium (8.5-10.1) mg/dl Albumin (3.4-5.0) gm/dl Urine Color Yellow Urine Appearance Clear (Clear) Urine pH 5.0 (4.5-7.5) Ur Specific [place] 1.017 (1.000-1.030) Urine Protein Negative (Negative) Urine Glucose (UA) Negative (Negative) Urine Ketones Negative (Negative) Urine Blood Negative (Negative) Urine Nitrite Negative (Negative) Urine Bilirubin Negative (Negative) Urine Urobilinogen Negative (Negative) Ur Leukocyte Esterase Trace H (Negative) Urine WBC (Auto) 1-5 (0-5) /hpf Urine RBC (Auto) 0-4 (0-4) /hpf U Hyaline Cast (Auto) 0 (0-5) /lpf U Epithel Cells (Auto) 10-20 H (0-5) /lpf Urine Bacteria (Auto) Negative (Negative) Blood Type B Positive Antibody Screen NEGATIVE 09/21/18 09/21/18 Range/Units 05:38 05:38 WBC 8.86 (4.8-10.8) K/uL RBC 4.40 (4.2-5.4) M/uL Hgb 11.3 L (12.0-16.0) g/dL Hct 35.5 L (37-47) % MCV 80.7 (80-100) fL MCH 25.7 (25-34) pg MCHC 31.8 L (32-36) g/dL RDW Std Deviation 42.4 (36.4-46.3) fL RDW Coeff of Karoline 14.2 (11.5-14.5) % Plt Count 185 (130-400) K/uL MPV 9.6 (7.4-10.4) fL Immature Gran % (Auto) 0.1 % Neut % (Auto) 77.8 % Lymph % (Auto) 14.1 % [place] % (Auto) 6.5 % Eos % (Auto) 1.4 % Baso % (Auto) 0.1 % Immature Gran # (Auto) 0.01 (0.00-0.02) K/uL Neut # (Auto) 6.89 H (1.4-6.5) K/uL Lymph # (Auto) 1.25 (1.2-3.4) K/uL [place] # (Auto) 0.58 (0.11-0.59) K/uL Eos # (Auto) 0.12 (0-0.5) K/uL Baso # (Auto) 0.01 (0-0.2) K/uL PT (9.0-12.0) Seconds INR (0.9-1.1) APTT (21.0-31.0) Seconds PTT Ratio Sodium 136 (136-145) mmol/L Potassium 3.6 (3.5-5.1) mmol/L Chloride 105 (98-107) mmol/L Carbon Dioxide 27 (21-32) mmol/L Anion Gap 4.0 (3-11) BUN 13 (7-18) mg/dl Creatinine 0.71 (0.6-1.2) mg/dl Est Cr Clr Drug Dosing 82.5 ml/min Est GFR ( Amer) 108.8 Est GFR (Non-Af Amer) 93.9 BUN/Creatinine Ratio 19.0 (10-20) Glucose 122 H (70-99) mg/dl Estimat Average Glucose mg/dl Hemoglobin A1c (4.5-5.6) % Calcium 8.1 L (8.5-10.1) mg/dl Albumin (3.4-5.0) gm/dl Urine Color Urine Appearance (Clear) Urine pH (4.5-7.5) Ur Specific [place] (1.000-1.030) Urine Protein (Negative) Urine Glucose (UA) (Negative) Urine Ketones (Negative) Urine Blood (Negative) Urine Nitrite (Negative) Urine Bilirubin (Negative) Urine Urobilinogen (Negative) Ur Leukocyte Esterase (Negative) Urine WBC (Auto) (0-5) /hpf Urine RBC (Auto) (0-4) /hpf U Hyaline Cast (Auto) (0-5) /lpf U Epithel Cells (Auto) (0-5) /lpf Urine Bacteria (Auto) (Negative) Blood Type Antibody Screen Total Time Total Time Spent Total Time Spent (In Minutes): 20 Discharge Plan Discharge Items Patient Disposition: Home - Self-Care Reason For Visit: Right Shoulder Osteoarthritis Discharge Diagnosis: Right shoulder osteoarthritis Discharge Goals: Decrease discomfort, Improve disease control, Improve function and Prevent disease Activity: Per 'Additional Instructions' section Non-emergency contact: Surgeon Call non-emergency contact if: you have any medication questions, your pain is not controlled, your pain is worsening, your pain is concerning for you, you have a fever, your temperature is above 101 and your wound has increased redness Follow-up/Referrals: Andrea Shabazz [Primary Care Provider] - Diet: Regular Addtl Provider Instructions: ACTIVITY RECOMMENDATIONS: SELF CARE INSTRUCTIONS AFTER TOTAL SHOULDER ARTHROPLASTY REVERSE A. You may do daily exercises as taught in physical therapy while in hospital. No lifting with the operative arm. B. You are to wear your sling/immobilizer at all times EXCEPT when performing your daily exercises and for hygiene purposes. C. You may perform dry, daily dressing changes. Please keep your incision covered. You may shower 48 hours after surgery. Do not apply soap or any ointment/ lotions directly over incision. Do not soak incision in bath tub/swimming pool. D. You may use ice as needed to operative shoulder. You should start physical therapy 2-3 days post operatively SPECIAL CARE INSTRUCTIONS: VERY IMPORTANT TO READ AND REVIEW A. There are a few signs you need to watch for after you are home. Call [facility] at [phone] if you experience any of the followin. Increased severe shoulder pain. Some pain is expected especially when you exercise. 2. Increased swelling in you shoulder or arm; pain or swelling in either upper extremity. 3. Any fluid drainage from the incision. 4. Shortness of breath or chest pain. B. Please call [facility] at [phone] if you have any questions or concerns about your operation or recovery. C. Call your physician if: 1. Temperature is greater than 101 degrees (F). 2. Pain is not relieved by prescribed pain medications. 3. Increase drainage or redness from incision. 4. Unanswered questions or concerns. FOLLOW UP VISIT: Please call [facility] at [phone] to schedule a follow up appointment with Dr. Brown or his PA in 12-14 days from your surgery date. Prescriptions: New acetaminophen [Pain Reliever] 500 mg Tablet 1,000 mg PO Q8 Qty: 60 RF: 0 oxycodone 5 mg Tablet 5 - 10 mg PO .Q4H-6H MDD Max 6 tabs per day PRN (Reason: pain) Qty: 30 RF: 0 morphine [MS Contin] 15 mg tablet extended release 15 mg PO Q12H PRN (Reason: pain) Qty: 10 RF: 0 Continue naproxen sodium 550 mg Tablet 550 mg PO BID PRN (Reason: Pain) RF: 0 oxymetazoline [Nasal [place] Sinus] 0.05 % [place],Non-Aerosol 2 spray INTRANASAL Q12H PRN (Reason: Congestion) RF: 0 levothyroxine 25 mcg Tablet 25 mcg PO QAM RF: 0 montelukast [Singulair] 10 mg Tablet 10 mg PO QAM RF: 0 albuterol sulfate 90 mcg/actuation Aerosol Powdr Breath Activated 2 inh INHALATION Q6H PRN (Reason: Shortness Of Breath) RF: 0 Discontinued hydrocodone-acetaminophen 5-325 mg Tablet 1 tab PO Q6H PRN (Reason: Pain) RF: 0 Stand-Alone Forms: Replaced By [facility], [facility] Pain [facility] Discharge Orders: Discharge Order (Routine); Ordered 09/22/18 Ordered By: Augustus Mayfield Admission Data Admit Date/Time: 09/20/18 11:54 Attending Provider: Christiano Brown Admit Provider: Christiano Brown Primary Care Provider: Andrea Shabazz Service: Surgical Services Other Interventions: Discharge Summary Assessment (RN) Last Done: 09/22/18 13:40 Pending Studies at Discharge: No DC Date/Time DO NOT enter until pt leaves facility: 09/22/18 14:08
== END 2018-09-22 14:08 | disposition home or self-care (01) | DRG 483 ==
LOC: ASU 06:29 → 3E 11:54
DX: Z80.0 Family history of malignant neoplasm of digestive organs; Z88.2 Allergy status to sulfonamides; J45.909 Unspecified asthma, uncomplicated; M75.101 Unspecified rotator cuff tear or rupture of right shoulder, not specified as traumatic; Z98.51 Tubal ligation status; Z87.891 Personal history of nicotine dependence; E03.9 Hypothyroidism, unspecified; M19.90 Unspecified osteoarthritis, unspecified site